=== PATIENT | male | born 1960 | race Caucasian/White ===

== ENCOUNTER 2017-05-20 12:50 | Observation (INO) | payer OTHER ==
--- NOTE | 2017-05-20 13:14 | CPEKG ---
Heart Rate: 65 RR Interval: 923 P-R Interval: 172 QRSD Interval: 90 QT Interval: 392 QTC Interval: 408 P [place]: 81 QRS [place]: 73 T Wave [place]: 66 EKG Severity - NORMAL ECG - EKG Impression: SINUS RHYTHM Electronically Signed By: Manish Rivera 20-May-2017 14:54:49
[2017-05-20 13:20] LABS: % IMMATURE GRANULYOCYTES 0.3 % (0.0-1.1); ABSOLUTE IMMATURE GRANULOCYTES 0.02 10^3/uL (0.00-0.10); ADD DIFF? NO; ADD MORPH? NO; ADD SCAN? NO; ATYPICAL LYMPHOCYTE FLAG 0 (0-99); FRAGMENT RBC FLAG 0 (0-99); HEMATOCRIT 47.7 % (40.0-51.0); HEMOGLOBIN 16.8 g/dL (13.7-17.5); LEFT SHIFT FLG 0 (0-99); LIPEMIA HEMOLYSIS FLAG 90 (0-99); MEAN CELL HEMOGLOBIN 33.4 pg (27.9-34.1); MEAN CELL HEMOGLOBIN CONCENTR. 35.2 g/dL (32.4-36.7); MEAN CELL VOLUME 94.8 fL (81.5-99.8); MEAN PLATELET VOLUME 8.7 fL (8.7-11.7); PLATELET CLUMPS FLAG 0 (0-99); PLATELET COUNT 231 10^3/uL (150-400); RED BLOOD CELL COUNT 5.03 10^6/uL (4.40-6.38); RED CELL DISTRIBUTION WIDTH 13.1 % (11.5-15.2)
[2017-05-20 13:33] LABS: ALANINE AMINOTRANSFERASE 52 IU/L (21-72); ALBUMIN 4.3 g/dL (3.5-5.0); ALKALINE PHOSPHATASE 56 IU/L (38-126); ANION GAP 17 mEq/L (8-16); ASPARTATE AMINOTRANSFERASE 26 IU/L (17-59); BILIRUBIN,TOTAL 0.7 mg/dL (0.1-1.4); CALCIUM 9.5 mg/dL (8.5-10.4); CARBON DIOXIDE 25 mEq/l (22-31); CHLORIDE 103 mEq/L (97-110); CREATININE 0.9 mg/dL (0.7-1.3); GLOMERULAR FILTRATION RATE > 60; GLUCOSE 93 mg/dL (70-100); POTASSIUM 4.3 mEq/L (3.5-5.2); SODIUM 145 mEq/L (134-144); TOTAL PROTEIN 6.8 g/dL (6.3-8.2)
[2017-05-20] MEDS ORDERED: ASPIRIN 81 MG CHEWABLE TAB PO ONE (13:38)
[2017-05-20] MEDS ORDERED: IOPAMIDOL (ISOVUE 370) 100 ML BTL IV ONE (13:41)
--- NOTE | 2017-05-20 13:43 | EDPHY ---
H & P Stated Complaint: c/o chest tightness since sat- today @ 09 rt face numbness and rt palmting Time Seen by Provider: 05/20/17 13:03 HPI/ROS: This patient presents with right-sided periorbital facial tingling and sensation of numbness. He also has right hand numbness-palm of hand ulnar aspect more than radial aspect. Both of the symptoms started this morning around 9:00 a.m. while at rest. The patient reports no other neuro symptoms. He reports that the nature of the numbness in his hand feels like Novocain shot while his facial sensations are more of a tingling sensation. He also complains of chest tightness of mild intensity onset around 8:30 a.m. or nine o' clock this morning, substernal location, nonradiating 1 to 2/10 intensity without exacerbating factors. His recent history is notable for similar chest tightness from Saturday to Saturday - constant, similar tight sensation without exacerbating factors that resolved prior for 2 days prior to recurrence this morning-no chest pain or Saturday or Saturday. Patient's brought him here by private vehicle for further evaluation of his symptoms. ROS: No fevers or chills. No other constitutional symptoms HEENT: Mild coryza over the past few days. No facial pain or headache. No other HEENT symptoms. Neuro: No visual changes. No headache. No focal weakness. No confusion. Pulmonary: No shortness of breath. Cardiovascular: No heart palpitations. No leg swelling. GI: Some nausea but no vomiting today. Normal bowel movements. : No complaints Integumentary: No skin rash Endocrine: No complaints Complete review of symptoms is otherwise negative. Source: Patient, Family (Patient is accompanied by his who also provides history.) Exam Limitations: No limitations - Personal History Current Tetanus Diphtheria and Acellular Pertussis (TDAP): Yes - Medical/Surgical History PMH: Otherwise healthy Other PMH: rt ankle surg.- family HX of Cardiac - Family History Significant Family History: Heart disease (Patient's father had his 1st OR in his early 60s.) - Social History Smoking Status: Current every day smoker Alcohol Use: Other (Patient drinks 3 or 4 [employer] lights most days per his ) Drug Use: None - Physical Exam Exam: Physical exam: Vital signs are normal General: Patient is in no acute distress. HEENT: Is no external evidence of trauma on exam. Eyes: Pupils are equal and reactive to light. Extraocular motions are intact. Optic fundi: Clear with no papilledema or hemorrhage. Nose atraumatic. Ears: Clear bilaterally with no hemotympanum. Oropharynx: No dental trauma or malocclusion. No intraoral lacerations. Eyes: Pupils are equal and reactive to light. Extraocular motions are intact. Optic fundi: Clear with no papilledema or hemorrhage. Lungs: Clear to auscultation bilaterally Neck: Supple no meningismus. Cardiac: Regular rate and rhythm no murmur gallop or rub. Abdomen: Soft nontender no organomegaly Neuro: NIH stroke scale of 1 for localized sensory deficit to his hand. Otherwise intact throughout. GCS of 15. Cranial nerves II through XII intact. Cerebellar exam is normal as judged by symmetric rapid hand movements bilaterally. No pronator drift. No sensory or motor deficits are appreciated except for loss of light touch sensation to the palm of his right hand more dense on the ulnar than the radial aspect. Initial differential diagnosis: Stroke, TIA, intracranial lesion, Migraine, cervical radiculopathy, early Vaughn's palsy, early zoster, ischemic cardiac disorder, Constitutional: Initial Vital Signs Temperature (C) 36.6 C 05/20/17 13:05 Heart Rate 78 05/20/17 13:05 Respiratory Rate 18 05/20/17 13:05 Blood Pressure 146/90 H 05/20/17 13:05 O2 Sat (%) 98 05/20/17 13:05 O2 Delivery Mode Room Air Allergies/Adverse Reactions: meperidine [From Demerol] Allergy (Verified 05/20/17 18:56) Hives Home Medications: Medication Instructions Recorded Cetirizine [ZyrTEC 10 mg (*)] 10 mg PO DAILY PRN 05/20/17 Herbals/Supplements -Info Only 1 ea PO DAILY 05/20/17 Medical Decision Making - Diagnostics EKG Interpretation: 12 lead EKG: Performed at 1:12 p.m. Sinus rhythm at 65 Intervals: Normal throughout [place]: Normal throughout ST segments: Normal throughout Overall assessment: Normal EKG Please refer to trace master for complete read. Repeat EKG performed at 5:01 p.m. indication recurrence of mild chest discomfort Sinus rhythm at 59 Intervals: Normal throughout [place]: Normal throughout ST segments: Normal throughout Overall assessment normal EKG Imaging: Discussed imaging studies w/ physicians assistant Radiologist ED Course/Re-evaluation: Based on the patient's symptoms initiated a stroke alert. I reviewed the patient's CT brain without contrast finding no significant abnormalities. I also spoke with Dr. Trevino who officially read the CT as normal. Patient is treated with aspirin 324 after review of his CT. I spoke with Dr. [facility] who did a telemedicine consult on the patient. He suggests pursuing further workup with a CT angio head and neck and MRI for evaluation of stroke versus TIA. Patient has very limited symptoms currently that do not warrant thrombolysis (risk of thrombolytics outweigh potential benefit). At 1419 I rechecked the patient and he reports that his chest pain is resolved without any further intervention. He now has no chest discomfort. He also reports that he feels his hand and facial numbness or improving now feeling more tingling then numb. I spoke with Cammy AndersonQasjtde-ptz-gwesv practitioner affiliated with the hospitalist group who accepts this patient for transfer to [facility]-admission to Dr. Sanchez for chest pain and stroke symptoms in this patient with history of smoking. We were able to perform the MRI study here of his brain. Upon arrival back from MRI the patient reports that he had brief recurrence of chest pain while in MRI that is now again less than 1/10. I spoke with Dr. Zavaleta-radiologist after the patient was transferred with result of the MRI brain-no evidence of acute ischemic stroke appreciated. Minimal white matter disease likely attributable to history of smoking is present. The patient return from MRI of his brain he had report of recurrence of less than 1/10 chest discomfort while in MRI. A Repeat EKG revealed no dynamic changes from 1st EKG-still normal sinus rhythm without abnormalities. Given minimal chest discomfort without EKG abnormalities and a normal troponin will not pursue further treatment of his current minimal chest pain. The etiology if this is not clear-patient certainly at some risk for coronary disease given smoking history but normal EKG , normal troponin. Other etiology could include GERD, musculoskeletal or other. Patient has ongoing right-sided symptoms. Possibilities for his struck symptoms include TIA versus early stroke without radiographic changes. Other possibilities could include a peripheral neuropathy, cervical radiculopathy or other. Patient's transfer to [facility] stable condition shortly after 5:00 p.m.. Total critical care time: Continuous bedside time excluding procedures-20 minutes - Data Points Laboratory Results: Laboratory Results 05/20/17 13:10 05/20/17 13:10 Medications Given: Discontinued Medications Aspirin (Aspirin) 324 mg PO EDNOW ONE Stop: 05/20/17 13:39 Last Admin: 05/20/17 13:40 Dose: 324 mg Departure - Departure Disposition: [facility] Inpatient Acute Clinical Impression: Stroke-like symptoms Chest pain Qualifiers: Chest pain type: precordial pain Qualified Code(s): R07.2 - Precordial pain Condition: Fair
--- NOTE | 2017-05-20 13:47 | PDCONSULT ---
[facility] Note: [facility] Note Demographics Consult Type Acute Stroke First Name Austin Last Name Andrez Date of 1960 Age: [address] Rivera Time of initial page (): 05/20/2017 13:20 Time of return call (): 05/20/2017 13:21 Time Ready to Initiate Telemed Consult ( Time): 05/20/2017 13:25 HPI Additional History (Free Text): 57 year old man smoker without significant other history. He had chest congestion and cold starting about 5 days ago this lasted about 3 days. He has been taking some cold remedies at home but only a few doses most recently one dose of NyQuil last night. He has numbness (loss of feeling and tingling quality) to his right periorbital area- sparing lower face and to the right hadn and forearm along the medial aspect. [facility] Social History: smoker Medications: none other than OTC use for recent cold. Exam Vitals: vital signs reviewed Mental Status: awake, alert + oriented x 3, follows commands Language: normal speech Cranial Nerves extra ocular movements intact, normal visual aburto, no facial droop, subjective right face numbness Motor: normal strength, normal bulk, no drift Sensory: subjective right medial hand numnbness Cerebellar: normal cerebellar NIHSS Time (): 05/20/2017 13:23 LOC 1a: 0 = Alert; keenly responsive LOC 1b: 0 = Answers both questions correctly LOC Commands: 0 = Performs both tasks correctly Best Gaze: 0 = Normal Visual: 0 = No visual loss Facial Palsy 0 = Normal symmetrical movements Motor Arm L: 0 = No drift; limb holds 90 (or 45) degrees for full 10 seconds Motor Arm R: 0 = No drift; limb holds 90 (or 45) degrees for full 10 seconds Motor Leg L: 0 = No drift; leg holds 30-degree position for full 5 seconds Motor Leg R: 0 = No drift; leg holds 30-degree position for full 5 seconds Limb Ataxia 0 = Absent Sensory: 1 = Nffw-hs-ifffphag sensory loss; patient feels pinprick is less sharp or is dull on the affected side, but patient is aware of being touched Best Language: 0 = No aphasia; normal Dysarthria: 0 = Normal Extinction + Inattention: 0 = No abnormality NIHSS: [address]: no bleed Assessment: Possible stroke symptoms given unilateral similar symptoms in face and upper extremity; however, limited distribution of symptoms. Alternatively possible nasal congestion wtih another reason for arm symptoms i.e. ulnar neuropathy. Plan Lytic/Intervention: NOT IV or IA candidate Imaging MRI brain without Other telemetry monitoring, I have discussed my recommendations with the referring provider Additional Recommendations: It is worth evaluating for pother stroke risk factors given age, smoking history and these symptoms. Disposition observation
[2017-05-20 15:28] LABS: TROPONIN I < 0.012 ng/mL (0.000-0.034)
--- NOTE | 2017-05-20 17:03 | CPEKG ---
Heart Rate: 59 RR Interval: 1017 P-R Interval: 172 QRSD Interval: 96 QT Interval: 400 QTC Interval: 397 P [place]: 80 QRS [place]: 76 T Wave [place]: 73 EKG Severity - NORMAL ECG - EKG Impression: SINUS RHYTHM Electronically Signed By: Juanpablo Rivera 21-May-2017 15:36:28
[2017-05-20] MEDS ORDERED: ONDANSETRON 4 MG/2 ML VIAL IVP PRN (18:42)
[2017-05-20] MEDS ORDERED: ACETAMINOPHEN 325 MG TAB PO PRN (18:42)
[2017-05-20] MEDS ORDERED: ONDANSETRON DISINTEGRATING 4 MG TAB PO PRN (18:42)
[2017-05-20 19:04] LABS: HEMATOCRIT 45.9 % (40.0-51.0)
--- NOTE | 2017-05-20 19:21 | GHP ---
[f rep st] HISTORY AND PHYSICAL DATE OF ADMISSION: 05/20/2017 CHIEF COMPLAINT: Right arm and facial numbness. HISTORY OF PRESENT ILLNESS: This is a 57-year-old male, who presented today with numbness. He felt as though he has been having problems with his blood pressure over the past few days. He also descri bes a tightness across his chest, which comes and goes. Does not seem exertion. Seems more related to stress than anything else. Today, he presented to the emergency room because he developed right-s ided arm and facial numbness, described as on the ulnar aspect of his arm. This is still present. H is facial numbness now only involved the right side of his nose, though it did seem to involve most o f the right cheek previously. He has no significant vascular risk factors. His father had an NC at age 63. His blood pressure has been elevated recently, though not previously. He has not had his cholesterol checked in years. PAST MEDICAL/SURGICAL HISTORY: Orthopedic surgeries, including left foot surgery, right toe amputati on, and left knee arthroscopy. MEDICATIONS: Please see medication reconciliation. ALLERGIES: No known drug allergies. FAMILY HISTORY: Father had an NC, as above. SOCIAL HISTORY: He is accompanied by his daughter. REVIEW OF SYSTEMS: A 10-point review of systems was conducted and was negative, except per HPI. PHYSICAL EXAM: VITAL SIGNS: Blood pressure 137/96, heart rate 64, respiration rate 15 saturating 95 % on room air, temperature 36.6. GENERAL: The patient is a pleasant man, who is comfortable, in no acute distress. HEENT: Shows him to be normocephalic, atraumatic. CARDIOVASCULAR: Regular rate an d rhythm. No murmurs, rubs, or gallops. PULMONARY: Lungs clear to auscultation bilaterally. ABDOM EN: Soft, nontender, nondistended. SKIN: No rash. : No [place]. NEUROLOGIC: Exam shows him to be alert and oriented x3. Cranial nerves 2-12 are intact, minus subjective right nose numbness. Mot or is intact in the upper and lower extremities. He has mild numbness in the ulnar aspect of his rig ht forearm and small fingers. Otherwise, sensation to light touch is intact in his lower extremities . He has no aphasia. No pronator drift. PSYCHIATRIC: Normal mood and affect. LABS: CBC is normal. is 145. Troponin is negative. DATA: 1. EKG, which I personally reviewed and interpreted, shows sinus rhythm. 2. Head and neck CT angiograms are negative. 3. Head CT scan shows a right maxillary sinus mucous retention cyst. IMPRESSION AND PLAN: 1. Neurologic issues: We will perform stroke workup. Brain MRI is pending. He was seen by Dr. Husain in teleconsultation. There is no indication for tPA. I have ordered lipids, echocardiogram, telem etry monitoring, Neurology consult. We will give him an aspirin tomorrow. Findings seem to be more related to cranial nerve V5 as well as ulnar nerve. Would consider mononeuritis multiplex. I have or dered an ESR and a CRP, though I think that this is unlikely. 2. Chest pain: Somewhat concerning, given his description of it. He has a normal EKG, negative tro ponins. We will trend troponins, monitor him on telemetry, and get a treadmill EKG tomorrow. /[id number]/MODL
[2017-05-20 19:50] LABS: HEMOGLOBIN A1C 5.4 % (4.0-6.0)
[2017-05-20 23:06] VITALS: RESP 18
[2017-05-20] MEDS ORDERED: CETIRIZINE 10 MG TAB PO PRN (23:15)
[2017-05-21 06:07] LABS: CHOLESTEROL 223 mg/dL (140-220); CHOLESTEROL/HDL RATIO 4.21 RATIO (1.00-4.97); HIGH DENSITY LIPOPROTEIN 53 mg/dL (40-65); LDL/HDL RATIO 2.72 RATIO (1.00-3.64); LOW DENSITY LIPOPROTEIN 144 mg/dL (80-100); NON-HIGH DENSITY LIPOPROTEIN 170 mg/dL (90-129); TRIGLYCERIDE 131 mg/dL (40-150); VERY LOW DENSITY LIPOPROTEINS 26 mg/dL (8-25)
[2017-05-21 06:18] LABS: TROPONIN I < 0.012 ng/mL (0.000-0.034)
[2017-05-21] MEDS ORDERED: ASPIRIN 81 MG CHEWABLE TAB PO SCH (09:00)
[2017-05-21 11:46] VITALS: BP 125/79; PULSE 94; TEMP 98.7; O2SAT 96
--- NOTE | 2017-05-21 12:46 | HOSPPROG ---
Hospitalist Progress Note Assessment/Plan: Patient is a 57-year-old male who presented to our emergency room with right arm and facial numbness. Today is my 1st encounter with the patient. Chart reviewed. *Michelleley a TIA -MRI doesn't indicate a stroke -head and neck CT angiograms are negative -hidden head CT shows a right maxillary sinus mucous retention cyst -12 lead EKG shows sinus rhythm -has an elevated LDL of 144/will start him on statin therapy -continue aspirin therapy -will have him follow up with Cardiology and get an outpatient Holter monitor. This will be delivered to his home in the next 48 hours -echocardiogram pending * chest pain-troponins negative -reviewed results treadmill stress test. This was noted to be stable * plan. -will discharge this afternoon after I am able to evaluate all of his studies. I discussed this with the patient and his Subjective: Austin has no complaints/ feeling fine/ numbness has resolved in his right cheek and right arm area. Objective: Vital Signs Temp Pulse Resp BP Pulse Ox 37.1 C 94 18 125/79 H 96 05/21/17 11:45 05/21/17 11:45 05/21/17 11:45 05/21/17 11:45 05/21/17 11:45 Laboratory Results 05/20/17 18:45 05/20/17 05/21/17 05/22/17 05:59 05:59 05:59 Intake Total 800 240 Balance 800 240 - Physical Exam Constitutional: no apparent distress, appears nourished, not in pain Eyes: PERRL Ears, Nose, Mouth, Throat: ears appear normal Cardiovascular: regular rate and rhythym Respiratory: no respiratory distress Gastrointestinal: normoactive bowel sounds Skin: warm Musculoskeletal: full muscle strength Neurologic: AAOx3, CN II-XII Intact, No numbness, No facial droop Psychiatric: interacting appropriately, not anxious ICD10 Worksheet Patient Problems: Problems Problem Status Onset Chest pain Acute Stroke-like symptoms Acute
--- NOTE | 2017-05-21 13:33 | ASMTCMCOM ---
CM Note CM Note Notes: Chart reviewed. Per PT/OT and SP therapy patient independent with all adl's. No needs identified. Plan home independent. CM available should needs arise. Date Signed: 05/21/2017 01:32 PM Electronically Signed By:Melissa Villanueva RN
[2017-05-21] MEDS ORDERED: ATORVASTATIN CALCIUM 10 MG TAB PO SCH (13:45)
--- NOTE | 2017-05-21 14:21 | ECHO ---
[email or web address] [address] [address] Main: [phone] Fax: Transthoracic Echocardiogram Name: MICHELLE GOLD MR#: [id number] Study Date: 05/21/2017 Study Time: 11:45 AM Date of : 1960 Age: 57 year(s) Height: 180.3 cm (71 in.) Weight: 81.65 kg (180 lb.) BSA: 2.02 m2 Gender: Male Examination: Echo Indication: TIA with bubble exam Image Quality: Contrast: Requested by: Jasen Sanchez BP: 125 mmHg/79 mmHg Heart Rate: Rhythm: Tachycardia Indication: TIA with bubble exam Procedure Staff Acoustical Installer: Jed Nevarez Physician: Tomas Wagner Requesting Provider: Conclusions: Normal study Measurements: Chambers Valvular Assessment AV/MV Valvular Assessment TV/PV Normal Normal Normal Name Value Range Name Value Range Name Value Range Ao Mitra (MM): 3.2 cm (2.2 cm-3.7 AV Vmax: 1.13 m/s (1 m/s-1.7 PV Vmax: 0.73 m/s (0.6 m/s-0.9 cm) m/s) m/s) IVSd (2D): 0.9 cm (0.6 cm-1.1 AV maxP mmHg ( - ) PV PGmax: 2 mmHg ( - ) cm) LVOT Vmax: 0.82 m/s (0.7 m/s-1.1 LVDd (2D): 4.0 cm (4.2 cm-5.9 m/s) cm) MV E Vmax: 0.70 m/s ( - ) LVDs (2D): 2.2 cm (2.1 cm-4 MV A Vmax: 0.57 m/s ( - ) cm) MV E/A: 1.23 ( - ) LVPWd (2D): 0.9 cm (0.6 cm-1 cm) LVEF (2D): 76 (>=54 %) Continued Measurements: Chambers Valvular Assessment AV/MV Name Value Name Value LADs Lon.8 cm MV E/E' Septal: 11.10 LA Area: 10.0 cm2 MV E/E' Lateral: 9.80 Findings: Left Ventricle: Normal size left ventricle. No LV hypertrophy. Normal global systolic LV function. EF is 76 %. No regional wall motion abnormality. Patient: MICHELLE GOLD Study Date: 05/21/2017 Page 1 of 2 11:45 AM Right Ventricle: Normal size right ventricle. Left Atrium: The left atrium is normal in size. An agitated saline study was performed and was negative for intracardiac shunting. Right Atrium: The right atrium is normal in size. Mitral Valve: The mitral valve is normal in appearance and function. There is no mitral valve regurgitation. Aortic Valve: The aortic valve is normal in appearance and function. The aortic valve is tri-leaflet. Tricuspid Valve: The tricuspid valve is normal in appearance and function. Pulmonic Valve: The pulmonic valve is normal in appearance and function. Aorta: The aorta is normal. Pericardium: No pericardial effusion. (No Signature Object) Patient: MICHELLE GOLD Study Date: 05/21/2017 Page 2 of 2 11:45 AM [id number]
--- NOTE | 2017-05-21 18:11 | GCON ---
[f rep st] CONSULTATION NEUROLOGIC CONSULTATION REFERRING PHYSICIAN: Jasen Sanchez MD HISTORY: The patient is a 57-year-old gentleman who is referred for neurologic consultation with a karyna hale complaint of right-sided numbness. He says symptoms began around 7 in the morning yesterday aft er he had gone to work. He felt acute numb sensations or tingling predominantly in the ulnar distrib ution of the right hand and arm. He was also noticing simultaneously abnormal sensations in the righ t face in the periorbital region. Symptoms persisted for several hours and he did not seek evaluatio n until Urgent Care around 11:30 in the morning. He then went to [facility] and was fully evaluated through Stroke Alert, but was not felt to be a candidate for tPA given lack of any large vessel stenoses or occlusion, and the very mild degree of symptoms at that point. He does not normally take daily aspir in and has never had a similar experience before. He denies any acute issues, but he has been a ramez le bit worried about his blood pressure lately, although he is not known to have hypertension. He bangura d a CT angiogram of the head and neck showing some mild stenoses, but no hemodynamically stenoses. T he CT head did not show stroke or any ischemic changes. An MRI showed some chronic small-vessel dise ase changes, but nothing else more specific and no evidence of acute stroke. Echocardiogram is pendi ng. Over the next 12 hours, symptoms have completely resolved and he feels back to his baseline now. The re were no other associated symptoms. No clear-cut alleviating or exacerbating factors. REVIEW OF SYSTEMS: A 10-point review of systems was completed and unremarkable except for that noted above. He was also having some chest discomfort and a little bit of pressure which has fluctuated, but no EKG changes have been noted or evidence of acute coronary ischemia. Cardiac monitoring has be en continued with no arrhythmias documented. He has remained in sinus rhythm. 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 FAMILY HISTORY: Notable for a myocardial infarction in his father at age 63. SOCIAL HISTORY: He does not smoke. No history of alcohol abuse. ALLERGIES: Allergy to meperidine. MEDICATIONS: His only medication prior to admission was Zyrtec as needed. He is currently taking 81 mg of aspirin daily. PHYSICAL EXAM: VITAL SIGNS: Blood pressure 114/77, he has maintained a good normal blood pressure. Heart rate of 79, respirations 18, temperature 36.9. GENERAL: He is well developed, in no acute di stress. EYES: Clear. NECK: Supple with no bruits or masses. CARDIAC: Regular rate and rhythm. No murmur. EXTREMITIES: No cyanosis or edema. NEUROLOGIC: He has an NIH stroke scale of 0. He is alert and oriented to person, place, time and general situation. He has normal concentration and at tention, as well as good recent and remote memory and general fund of knowledge, and has fluent langu age skills. Pupils are 3 mm and reactive. Normal fundi. No visual field loss. Extraocular movemen ts are intact. Normal facial sensation and strength. Palate elevates symmetrically and tongue protr udes midline. Hearing is preserved. No weakness of head turning or shoulder shrug. Motor exam reve als normal muscle bulk and tone with 5/5 strength and no abnormal movements. No ataxia on finger-to- nose. Sensation is preserved for temperature and light touch. The reflexes are 2+ and symmetric wit h no pathologic reflexes. He has had no trouble with his balance or walking. DIAGNOSTIC DATA: The diagnostic studies are as outlined above. IMPRESSION: The patient has experienced a probable transient ischemic attack in the left subcortical region with MRI findings suggesting chronic small-vessel disease. PLAN: Although he does not have any known risk factors, he will need his lipid profile checked. He should stay on aspirin therapy and should be started on a statin for secondary stroke prophylaxis no matter what the level of his total cholesterol is or LDL. He should work with his primary care on mo nitoring blood pressure to see if he has any need for antihypertensive therapy which is not evident c javed during this hospitalization. Echocardiogram is pending. Consideration for cardiac monitori ng for the halfway to look for any occult arrhythmias is also recommended. This can either be esta blished during this hospitalization or as an outpatient. He is advised to follow up with me within 1 month. Assuming no acute findings today or new problems, he should be able to be discharged. /[id number]/MODL
--- NOTE | 2017-05-21 21:36 | CPR ---
[f rep st] NONINVASIVE CARDIAC PROCEDURE REPORT DATE OF PROCEDURE: 05/21/2017 PROCEDURE: Exercise treadmill test. INDICATION: The patient is a 57-year-old male, who developed chest pressure and right arm numbness, while sitting during a meeting at work. This persisted for over 12 hours. He was given aspirin with out any improvement in his discomfort. His risk factors for coronary artery disease include family h istory. His father has a history of coronary artery disease, which began in his mid 60s. He also is currently a smoker. He denies any history of diabetes, hypertension, or hyperlipidemia. DESCRIPTION OF PROCEDURE: Consent was obtained, and the patient was placed on continuous telemetry. His resting EKG reveals normal sinus rhythm with heart rate of 68, AR interval of 164, and a QRS dur ation of 94. His QTc is within normal limits at 395. Austin exercised on the treadmill for 10 minut es without any associated chest discomfort. His exercise portion of the study was discontinued secon krista to maximal effort. He remained in normal sinus rhythm with 0.[address] depression diffu sely. His heart rate peaked at 156 beats per minute. His blood pressure at rest was 128/80 and incr eased appropriately, peaking at 174/76. His blood pressure returned to baseline 5 minutes into recov leonel. PLAN: He had 0.[address] depression diffusely with peak exertion. No diagnostic ST-T wav e changes to suggest ischemia. /[id number]/MODL
--- NOTE | 2017-05-22 01:22 | GDS ---
[f rep st] DISCHARGE SUMMARY DISCHARGE DIAGNOSES: 1. Transient ischemic attack with right facial numbness and right arm numbness. 2. Chest pain. CONSULTATIONS: 1. Dr. Eddie Ingram with neurology. 2. Dr. Uche Jerry, neurology via [place]. Briefly, Austin Maguire is a 57-year-old gentleman who presented to the emergency room with right arm an d facial numbness. He also was concerned that he had been having blood pressure problems over the st few days. He felt a tightness across his chest which came and went but did not seem exertional. It seemed more related to stress than anything else. Then he had some right-sided arm and right faci al numbness. He was admitted and had a head and neck CT angiograms that were negative. A head CT scan showed a ri ght maxillary sinus mucous retention cyst. Brain MRI showed a few nonspecific hyperintense T2/FLAIR signal abnormalities in white matter of bilateral cerebral hemispheres. He had no acute infarct, hem orrhage or mass effect. In addition, he had a right mandible benign 8 mm osseous cyst. For his ches t pain, he had a treadmill done. I spoke with Cardiology. They said this was stable. Echocardiogra m with a bubble test was performed. He had no intracardiac shunting, overall it was a stable test. Today, he will be discharged home. HOSPITAL COURSE BY PROBLEM: 1. Likely transient ischemic attack. Will continue him on statin therapy as well as aspirin therapy for preventative measures. He will follow up with Cardiology, and get an outpatient Holter monitor. I spoke with them. This will be delivered to his home in the next 48 hours. His symptoms have sin ce resolved. 2. Chest pain. Troponin is negative. His treadmill stress test is stable. His echocardiogram show s nothing acute. DISCHARGE CONDITION: Stable. Blood pressure is 125/79, O2 saturations on room air are 96%, respirat ory rate is 18, pulse is 94, temperature is 37.1 Celsius. MEDICATIONS AT DISCHARGE: Please see the EMR. New medications include a baby aspirin and statin the rapy. DISCHARGE INSTRUCTIONS: 1. To follow up with his primary care provider. He may need to increase his statin dosing. 2. To follow up with Dr. Jeronimo with cardiology. 3. If he develops any stroke symptoms or any chest pain, to return to the ER. /[id number]/MODL
--- NOTE | 2017-05-22 09:59 | ASDISCHSUM ---
Discharge Information Plan Status:Home with No Needs Medically Cleared to Leave: Discharge Date:05/21/2017 03:10 PM CM D/C Disposition: ADT D/C Disposition:Home, Routine, Self-Care Projected Discharge Date:05/21/2017 03:10 PM Transportation at D/C: Discharge Delay Reason: Follow-Up Date:05/21/2017 03:10 PM Discharge Slot: Final Diagnosis: Placement Information Patient Contact Information Contact Name:AMANDA Relationship: Address:[address] [place] [address] City:[place] Phone: [facility]/Zip Code:[place] [address] Email: Financial Information Financial Class:HMO and PPO Plans Primary Plan Desc:[facility] Primary Plan Number:[id number] Secondary Plan Desc: Secondary Plan Number: Assessment Information [facility] CM Progress Note CM Note CM Note Notes: Chart reviewed. Per PT/OT and SP therapy patient independent with all adl's. No needs identified. Plan home independent. CM available should needs arise. Date Signed: 05/21/2017 01:32 PM Electronically Signed By:Melissa Villanueva RN LACE LACE Length of stay for Answers: 1 day current admission Acuity / Level of Care Answers: Was the patient admitted to hospital via the emergency department? Yes: Comorbidities - select Answers: Cerebrovascular disease all that apply Emergency dept visits in Answers: 0 last 6 months Score: 5 Date Signed: 05/21/2017 01:33 PM Electronically Signed By:Melissa Villanueva RN Intervention Information
== END 2017-05-21 15:10 | disposition home or self-care (01) ==
LOC: CED 12:50 → CEDHOLD 14:46 → F3N 17:40
PROVIDERS: ADMIT Student in an Organized Health Care Education/Training Program; ATTEND Student in an Organized Health Care Education/Training Program
DX: G45.9 Transient cerebral ischemic attack, unspecified (principal); R07.9 Chest pain, unspecified; F17.200 Nicotine dependence, unspecified, uncomplicated
CPT/HCPCS: 70450; 70496; 70498; 70551; 92523; 92610; 93005; 93017; 93306; 97165; 99285; G0378; 80053-PO; 84484-PO; 85025-PO; 85730-PO; Q9967